=== PATIENT | male | born 1960 | race Hispanic/Latino ===

== ENCOUNTER 2017-11-28 10:30 | Emergency (ER) | payer SELFPAY ==
[~2017-11-28] VITALS: Ht 172.7 cm; Wt 54.4 kg
[2017-11-28] MEDS ORDERED: HYDROCODONE/APAP 10MG-325MG TAB PO ONE (10:45)
--- NOTE | 2017-11-28 11:24 | Diagnostic Imaging Report ---
PROCEDURE:X-RAY RIGHT FOOT, COMPLETE COMPARISON:None. INDICATIONS:RIGHT ANKLE PAIN FINDINGS: No acute, displaced fracture or dislocation. Appropriate alignment between the medial cuneiform and second metatarsal base compatible with an intact Lisfranc ligament. Joint spaces are well-maintained. Soft tissues are unremarkable CONCLUSION: No acute osseous abnormality. Dictated by: Lázaro Solis M.D. on 11/28/2017 at 11:23 Electronically approved by: Lázaro Solis M.D. on 11/28/2017 at 11:23
--- NOTE | 2017-11-28 11:25 | Diagnostic Imaging Report ---
PROCEDURE:X-RAY RIGHT ANKLE, COMPLETE INDICATION:Pain COMPARISON:None. FINDINGS: No acute, displaced fracture or dislocation. Tibial plafond and talar dome are intact. Ankle mortise is maintained. Posttraumatic fragment adjacent to the medial malleolus with probable dystrophic/posttraumatic calcification of the distal interosseous ligament. Soft tissues are unremarkable. CONCLUSION: No acute osseous abnormality. Dictated by: Lázaro Solis M.D. on 11/28/2017 at 11:25 Electronically approved by: Lázaro Solis M.D. on 11/28/2017 at 11:25
--- NOTE | 2017-11-28 11:31 | Diagnostic Imaging Report ---
PROCEDURE:X-RAY RIGHT LOWER LEG COMPARISON:None. INDICATIONS:RIGHT ANKLE PAIN FINDINGS: No acute, displaced fracture or dislocation. Posttraumatic changes of the distal tibia and fragmentation of the medial tibial spine.. Joint spaces are well-maintained. Soft tissues unremarkable. CONCLUSION: No acute osseous abnormality. Dictated by: Lázaro Solis M.D. on 11/28/2017 at 11:30 Electronically approved by: Lázaro Solis M.D. on 11/28/2017 at 11:30
[2017-11-28 13:53] VITALS: BP 131/71
== END 2017-11-28 13:45 | disposition home or self-care (01) ==
LOC: ER 10:30
DX: S93.491A Sprain of other ligament of right ankle, initial encounter (principal); S90.01XA Contusion of right ankle, initial encounter; Y93.89 Activity, other specified; Y92.488 Other paved roadways as the place of occurrence of the external cause; E11.9 Type 2 diabetes mellitus without complications
CPT/HCPCS: 99284